=== PATIENT | female | born 1955 | race Caucasian/White ===

== ENCOUNTER → 2020-06-19 | Outpatient (CLI) | payer MEDICARE, OTHER | LOC: KOH-I 09:04 | DX: S92.352A Displaced fracture of fifth metatarsal bone, left foot, initial encounter for closed fracture (principal); Z98.890 Other specified postprocedural states; X58.XXXA Exposure to other specified factors, initial encounter | CPT/HCPCS: 73630 ==

== ENCOUNTER → 2020-08-07 | Outpatient (CLI) | payer MEDICARE, OTHER | LOC: KOH-I 14:40 | DX: S92.352D Displaced fracture of fifth metatarsal bone, left foot, subsequent encounter for fracture with routine healing (principal) | CPT/HCPCS: 73630 ==

== ENCOUNTER → 2020-10-30 | Outpatient (CLI) | payer MEDICARE, OTHER | LOC: KOH-I 08:57 | DX: S92.352D Displaced fracture of fifth metatarsal bone, left foot, subsequent encounter for fracture with routine healing (principal) | CPT/HCPCS: 73630 ==